=== PATIENT | female | born 1990 | race Two or more races ===

== ENCOUNTER 2016-11-07 19:44 | Emergency (ER) | payer MEDICAID ==
[~2016-11-07] VITALS: Ht 160 cm; Wt 90.7 kg
[2016-11-07 22:06] VITALS: BP 124/61
== END 2016-11-07 23:06 | disposition home or self-care (01) ==
LOC: ER 19:50
DX: S60.221A Contusion of right hand, initial encounter (principal); Z90.49 Acquired absence of other specified parts of digestive tract; W22.8XXA Striking against or struck by other objects, initial encounter; Y93.89 Activity, other specified; Y99.8 Other external cause status; Y92.89 Other specified places as the place of occurrence of the external cause
CPT/HCPCS: 73130; 81025

== ENCOUNTER 2016-12-24 12:48 | Emergency (ER) | payer MEDICAID ==
[~2016-12-24] VITALS: Ht 160 cm; Wt 90.7 kg
[2016-12-24 13:59] VITALS: BP 111/58
[2016-12-24] MEDS ORDERED: KETOROLAC TROMETH 60MG/2ML VIAL IM ONE (14:15)
== END 2016-12-24 15:05 | disposition home or self-care (01) ==
LOC: ER 12:49
DX: M23.91 Unspecified internal derangement of right knee (principal); M23.92 Unspecified internal derangement of left knee; Z90.49 Acquired absence of other specified parts of digestive tract
CPT/HCPCS: 96372; 99283; J1885

== ENCOUNTER 2017-06-15 10:40 | Emergency (ER) | payer MEDICAID ==
[~2017-06-15] VITALS: Ht 160 cm; Wt 91.6 kg
[2017-06-15 12:08] LABS: Basophils # (auto) 0 uL; Basophils % (auto) 0.5 % (0.0-2.0); Eosinophils # (auto) 0.1 uL; Eosinophils % (auto) 0.9 % (0.0-7.0); Hematocrit 37.5 % (36.0-46.0); Lymphocytes # (auto) 1.3 uL; Lymphocytes % (auto) 14.3 % (10.0-50.0); Mean Corpuscular Hemoglobin 31.9 pg (28.0-32.0); Mean Corpuscular Hgb Conc. 34.7 g/dL (32.0-36.0); Mean Corpuscular Volume 91.8 fL (80.0-100.0); Monocytes # (auto) 0.6 uL; Monocytes % (auto) 6.3 % (0.0-12.0); Neutrophils # (auto) 6.9 uL; Platelet Count (auto) 231 10^3/uL (140-450); Red Blood Cells 4.08 10^6/uL (4.0-5.20); Red Cell Distribution Width 13.9 % (11.8-14.3); White Blood Cell 8.8 10^3/uL (4.4-10.8)
[2017-06-15 12:34] LABS: Potassium 4.1 mmol/L (3.5-5.1)
[2017-06-15 12:35] LABS: Albumin 3.9 g/dL (3.4-5.0); BUN/Creatinine Ratio 26.7; Bilirubin, Total 0.3 mg/dL (0.2-1.0); Calcium 8.9 mg/dL (8.5-10.1); Total Protein 7.6 g/dL (6.4-8.2)
[2017-06-15 13:09] LABS: Urine Bacteria FEW /hpf (None Seen); Urine Blood Negative /uL (Negative); Urine Specific Gravity 1.022 (1.001-1.035); Urine WBC 13 /hpf (0 - 5)
[2017-06-15 13:54] VITALS: BP 134/67
== END 2017-06-15 13:58 | disposition home or self-care (01) ==
LOC: ER 10:40
DX: N39.0 Urinary tract infection, site not specified (principal); E28.2 Polycystic ovarian syndrome; Z90.49 Acquired absence of other specified parts of digestive tract
CPT/HCPCS: 36415; 76856; 80053; 81001; 83690; 84702; 85025

== ENCOUNTER 2019-05-17 12:47 | Emergency (ER) | payer MEDICAID ==
[~2019-05-17] VITALS: Ht 157.5 cm; Wt 97.5 kg
[2019-05-17 13:02] VITALS: BP 110/42
== END 2019-05-17 18:24 | disposition home or self-care (01) ==
LOC: ER 12:47
DX: M25.511 Pain in right shoulder (principal)
CPT/HCPCS: 73030

== ENCOUNTER 2020-08-12 10:59 | Emergency (ER) | payer MEDICAID ==
[~2020-08-12] VITALS: Ht 160 cm; Wt 120.2 kg
[2020-08-12] MEDS ORDERED: CLINDAMYCIN 600MG IV 50 ML IV ONE (12:00)
[2020-08-12] MEDS ORDERED: SODIUM CHLORIDE 0.9% 1,000 ML IV ONE (12:00)
[2020-08-12] MEDS ORDERED: KETOROLAC TROMETH 30 MG/ML 1ML VIAL IV ONE (12:00)
[2020-08-12 13:00] VITALS: BP 144/77
== END 2020-08-12 13:37 | disposition home or self-care (01) ==
LOC: ER 11:00
DX: K04.7 Periapical abscess without sinus (principal); Z90.49 Acquired absence of other specified parts of digestive tract
CPT/HCPCS: 96365; 96375; 99284; J1885; J3490

== ENCOUNTER 2021-01-12 11:19 | Emergency (ER) | payer MEDICAID ==
[~2021-01-12] VITALS: Ht 157.5 cm; Wt 83.5 kg
[2021-01-12 11:42] VITALS: BP 113/57
== END 2021-01-12 12:40 | disposition home or self-care (01) ==
LOC: ER 11:19
DX: S63.601A Unspecified sprain of right thumb, initial encounter (principal); Z90.49 Acquired absence of other specified parts of digestive tract; W20.8XXA Other cause of strike by thrown, projected or falling object, initial encounter; Y93.89 Activity, other specified; Y92.89 Other specified places as the place of occurrence of the external cause; Y99.8 Other external cause status
CPT/HCPCS: 73130